=== PATIENT | male | born 1970 | race Caucasian/White ===

== ENCOUNTER 2016-08-09 07:59 | Outpatient (CLI) | payer OTHER | END 2016-08-09 08:00 | disposition home or self-care (01) | DX: E11.65 Type 2 diabetes mellitus with hyperglycemia (principal); Z79.899 Other long term (current) drug therapy ==

== ENCOUNTER 2017-04-22 10:18 | Outpatient (CLI) | payer OTHER ==
[2017-04-22 10:55] LABS: BASOPHILS # (AUTO) 0.1 10^3/uL (0.0-0.1); EOSINOPHILS # (AUTO) 0.1 10^3/uL (0.0-0.7); EOSINOPHILS % (AUTO) 1.4 %; HGB - HEMOGLOBIN 14.2 g/dL (14.0-18.0); LYMPHOCYTES % (AUTO) 31.8 %; MEAN CORPUSCULAR HEMOGLOBIN 27.9 pg (27.0-31.0); MEAN CORPUSCULAR VOLUME 79.8 fL (80.0-94.0); MEAN PLATELET VOLUME 8.2 fL (7.4-11.4); MONOCYTES # (AUTO) 0.5 10^3/uL (0.0-1.0); MONOCYTES % (AUTO) 7.4 %; NEUTROPHILS # (AUTO) 3.7 10^3/uL (1.5-6.6); NEUTROPHILS % (AUTO) 58.4 %; PLT - PLATELET COUNT 167 10^3/uL (130-450); RED BLOOD COUNT 5.09 10^6/uL (4.70-6.10); WHITE BLOOD COUNT 6.3 x10^3/uL (4.8-10.8)
[2017-04-22 11:15] LABS: ALBUMIN 4.2 g/dL (3.2-5.5); ALBUMIN/GLOBULIN RATIO 1.4 (1.0-2.2); ALKALINE PHOSPHATASE 63 IU/L (42-121); ALT ALANINE AMINOTRANSFERASE 43 IU/L (10-60); AST ASPARTATE AMINOTRANSFERASE 26 IU/L (10-42); BILIRUBIN,TOTAL 0.8 mg/dL (0.2-1.0); BUN - BLOOD UREA NITROGEN 25 mg/dL (6-20); CALCIUM 9.5 mg/dL (8.5-10.3); CARBON DIOXIDE - CO2 23 mmol/L (21-32); CHLORIDE 101 mmol/L (101-111); CHOL/HDL RATIO 4.3 (<5.0); CHOLESTEROL 183 mg/dL; CREATININE 0.6 mg/dL (0.6-1.2); GFR - MDRD 144 (>89); GLUCOSE 222 mg/dL (70-100); HDL CHOLESTEROL 43 mg/dL; LDL CHOLESTEROL,CALCULATED 115 mg/dL; LDL/HDL RATIO 2.7 (<3.6); SODIUM 138 mmol/L (135-145); TOTAL PROTEIN 7.2 g/dL (6.7-8.2); VLDL CHOLESTEROL 25 mg/dL
[2017-04-22 11:20] LABS: HB2 TOTAL 15.3 g/dL; HEMOGLOBIN A1C 1.07 g/dL; HEMOGLOBIN A1C % 8.5 % (4.6-6.2)
== END 2017-04-22 10:19 | disposition home or self-care (01) ==
LOC: LAB 10:18
PROVIDERS: ATTEND Physician Assistant Medical
DX: Z00.00 Encounter for general adult medical examination without abnormal findings (principal); E11.9 Type 2 diabetes mellitus without complications; I10 Essential (primary) hypertension; Z12.5 Encounter for screening for malignant neoplasm of prostate; Z79.899 Other long term (current) drug therapy
CPT/HCPCS: 36415; 80053; 80061; 83036; 84153; 84443; 85025

== ENCOUNTER 2017-09-08 08:00 | Outpatient (CLI) | payer OTHER ==
[2017-09-08 14:11] LABS: HB2 TOTAL 17.1 g/dL; HEMOGLOBIN A1C 1.09 g/dL
== END 2017-09-08 08:01 | disposition home or self-care (01) ==
LOC: LAB.R 08:00
PROVIDERS: ATTEND Physician Assistant Medical
DX: E11.9 Type 2 diabetes mellitus without complications (principal); Z79.899 Other long term (current) drug therapy
CPT/HCPCS: 82947; 83036

== ENCOUNTER 2017-10-19 16:00 | Outpatient (CLI) | payer OTHER | END 2017-10-19 16:01 | disposition home or self-care (01) | LOC: LAB.R 16:00 | PROVIDERS: ATTEND Physician Assistant Medical | DX: R81 Glycosuria (principal); E11.9 Type 2 diabetes mellitus without complications | CPT/HCPCS: 82043 ==

== ENCOUNTER 2018-03-17 10:43 | Outpatient (CLI) | payer OTHER ==
[2018-03-17 11:30] LABS: CHOL/HDL RATIO 4.7 (<5.0); CHOLESTEROL 189 mg/dL; GLUCOSE 232 mg/dL (70-100); HDL CHOLESTEROL 40 mg/dL; LDL CHOLESTEROL,CALCULATED 114 mg/dL; LDL/HDL RATIO 2.9 (<3.6); VLDL CHOLESTEROL 35 mg/dL
[2018-03-17 16:21] LABS: HB2 TOTAL 15.8 g/dL; HEMOGLOBIN A1C 1.08 g/dL; HEMOGLOBIN A1C % 8.4 % (4.6-6.2)
== END 2018-03-17 10:44 | disposition home or self-care (01) ==
LOC: LAB 10:43
PROVIDERS: ATTEND Physician Assistant Medical
DX: Z79.899 Other long term (current) drug therapy (principal); E66.9 Obesity, unspecified; E11.9 Type 2 diabetes mellitus without complications; I10 Essential (primary) hypertension
CPT/HCPCS: 36415; 80061; 82947; 83036; 83721

== ENCOUNTER 2018-06-17 12:07 | Emergency (ER) | payer OTHER ==
--- NOTE | 2018-06-17 13:08 | XRAY Report ---
Reason: productive cough, chills Procedure Date: 06/17/2018 Accession Number: [id number] / [id number] Procedure: XR - Chest 2 View X-Ray CPT Code: 05975 FULL RESULT: EXAM: CHEST RADIOGRAPHY EXAM DATE: 06/17/2018 12:41 PM. CLINICAL HISTORY: Productive cough, chills. COMPARISON: None. TECHNIQUE: 2 views. FINDINGS: Lungs/Pleura: No focal opacities evident. No pleural effusion. No pneumothorax. Normal volumes. Mediastinum: Heart and mediastinal contours are unremarkable. Other: None. IMPRESSION: Normal 2-view chest radiography. RADIA
--- NOTE | 2018-06-17 15:25 | ED Physician Documentation ---
PD HPI URI - Stated complaint Stated Complaint: SORE THROAT/CONGESTED/SOA - Chief complaint Chief Complaint: Resp - History obtained from History obtained from: Patient - History of Present Illness Timing - onset: How many weeks ago (1) Timing duration: Weeks (1) Timing details: Abrupt onset, Still present Associated symptoms: Nasal congestion (for a week), Swollen nodes, Productive cough (for 2-3 days). No: Fever Contributing factors: No: Sick contact, Travel, COPD / asthma Similar symptoms before: Has not had sx before Recently seen: Not recently seen Review of Systems Constitutional: reports: Fever Nose: reports: Congestion Throat: denies: Sore throat Respiratory: reports: Dyspnea, Cough GI: denies: Nausea, Vomiting, Diarrhea Skin: denies: Rash, Lesions Neurologic: denies: Altered mental status, Headache PD PAST MEDICAL HISTORY - Past Medical History Cardiovascular: Hypertension Endocrine/Autoimmune: Type 2 diabetes GI: GERD Musculoskeletal: Other - Present Medications Home Medications: Ambulatory Orders Medication Instructions Recorded Confirmed HYDROcod/ACETAM 5/325 [Vicodin 1 tab PO Q6HR PRN 02/05/14 04/30/14 5/325] Ibuprofen 100 mg PO Q6HR PRN 02/05/14 04/30/14 Lisinopril/Hydrochlorothiazide 1 each PO BID 02/05/14 04/30/14 [Lisinopril-Hctz 20-12.5 mg Tab] Metformin HCl [Metformin ER 500 - 1,000 mg PO BID 02/05/14 04/30/14 Osmotic] Aspirin Chewable [[place] 81 mg PO DAILY 06/17/18 06/17/18 Aspirin] Benzonatate [Tessalon Perle] 100 - 200 mg PO TID PRN #30 capsule 06/17/18 Dexamethasone [Decadron] 4 mg PO DAILY #5 tablet 06/17/18 Doxycycline Hyclate 100 mg PO BID #20 capsule 06/17/18 Insulin Lispro [Humalog] 15 unit SUBQ BID 06/17/18 06/17/18 Meloxicam 7.5 mg PO DAILY PRN 06/17/18 06/17/18 guaiFENesin/CODEINE [Robitussin AC] 10 ml PO Q6H PRN #240 ml 06/17/18 - Allergies Allergies/Adverse Reactions: Allergies Allergy/AdvReac Type Severity Reaction Status Date / Time No Known Drug Allergies Allergy Verified 06/17/18 12:23 - Social History Smoking Status: Former smoker PD ED PE NORMAL - Vitals Vital signs reviewed: Yes - General General: Alert and oriented X 3, No acute distress, Well developed/nourished - HEENT HEENT: Moist mucous membranes, Pharynx benign - Neck Neck: Supple, no meningeal sign, No adenopathy - Cardiac Cardiac: RRR, No murmur - Respiratory Respiratory: Clear bilaterally - Abdomen Abdomen: Soft, Non tender - Derm Derm: Normal color, Warm and dry - Neuro Neuro: Alert and oriented X 3, No motor deficit, Normal speech Results - Vitals Vitals: Oxygen O2 Source Room air - Rads (name of study) chest xray Radiology: Prelim report reviewed (normal), EMP read contemporaneously, See rad report PD MEDICAL DECISION MAKING - ED course Complexity details: reviewed results, considered differential (URI with now productive cough.), d/w patient Departure - Departure Disposition: Home, Self Care Clinical Impression: Bronchitis Upper respiratory infection Qualifiers: URI type: unspecified URI Qualified Code(s): J06.9 - Acute upper respiratory infection, unspecified Condition: Stable Record reviewed to determine appropriate education?: Yes Instructions: ED Upper Resp Infec Abx Tx Follow-Up: Ashok Negron MD [Primary Care Provider] - Prescriptions: Benzonatate [Tessalon Perle] 100 - 200 mg PO TID PRN #30 capsule PRN Reason: Cough Dexamethasone [Decadron] 4 mg PO DAILY #5 tablet Doxycycline Hyclate 100 mg PO BID #20 capsule guaiFENesin/CODEINE [Robitussin AC] 10 ml PO Q6H PRN #240 ml PRN Reason: Cough Comments: No pneumonia on x-ray. Sounds like bronchitis which may be viral or sometimes bacterial. Use Decadron anti-inflammatory for the bronchial inflammation will have less coughing. Tessalon if needed for cough as well. You can add cough medicine with codeine periodically if needed for worse cough. Doxycycline antibiotic twice daily for a week for potential bacterial component. Recheck if not improving over the next several days to week Discharge Date/Time: 06/17/18 16:17
[2018-06-17 15:45] VITALS: BP 112/89
[2018-06-17] MEDS ORDERED: DEXAMETHASONE 10 MG/ML VIAL PO STA (15:46)
[2018-06-17] MEDS ORDERED: BENZONATATE 100 MG CAPSULE PO STA (15:46)
[2018-06-17] MEDS ORDERED: CHERRY SYRUP 10 ML UDC PO ONE (15:54)
== END 2018-06-17 16:17 | disposition home or self-care (01) ==
LOC: ED 12:07
DX: J06.9 Acute upper respiratory infection, unspecified (principal); J40 Bronchitis, not specified as acute or chronic; I10 Essential (primary) hypertension; E11.9 Type 2 diabetes mellitus without complications; Z87.891 Personal history of nicotine dependence
CPT/HCPCS: 71046; 99283; A9270

== ENCOUNTER 2018-09-19 10:42 | Outpatient (CLI) | payer OTHER ==
[2018-09-19 11:33] LABS: HB2 TOTAL 14.8 g/dL; HEMOGLOBIN A1C 1.08 g/dL; HEMOGLOBIN A1C % 8.8 % (4.6-6.2)
[2018-09-19 11:35] LABS: ALBUMIN 4.2 g/dL (3.2-5.5); ALBUMIN/GLOBULIN RATIO 1.5 (1.0-2.2); ALKALINE PHOSPHATASE 54 IU/L (42-121); ALT ALANINE AMINOTRANSFERASE 46 IU/L (10-60); AST ASPARTATE AMINOTRANSFERASE 30 IU/L (10-42); BILIRUBIN,TOTAL 0.7 mg/dL (0.2-1.0); BUN - BLOOD UREA NITROGEN 33 mg/dL (6-20); CALCIUM 9.3 mg/dL (8.5-10.3); CARBON DIOXIDE - CO2 26 mmol/L (21-32); CHLORIDE 104 mmol/L (101-111); CHOL/HDL RATIO 3.8 (<5.0); CHOLESTEROL 166 mg/dL; CREATININE 0.7 mg/dL (0.6-1.2); GFR - MDRD 119 (>89); GLUCOSE 165 mg/dL (70-100); HDL CHOLESTEROL 44 mg/dL; LDL CHOLESTEROL,CALCULATED 108 mg/dL; LDL/HDL RATIO 2.5 (<3.6); SODIUM 138 mmol/L (135-145); VLDL CHOLESTEROL 14 mg/dL
== END 2018-09-19 10:43 | disposition home or self-care (01) ==
LOC: LAB 10:42
PROVIDERS: ATTEND Internal Medicine
DX: E11.65 Type 2 diabetes mellitus with hyperglycemia (principal)
CPT/HCPCS: 36415; 80053; 80061; 83036; 83721

== ENCOUNTER 2018-12-15 10:00 | Outpatient (CLI) | payer OTHER ==
[2018-12-15 10:37] LABS: HB2 TOTAL 14.9 g/dL; HEMOGLOBIN A1C 0.89 g/dL; HEMOGLOBIN A1C % 7.6 % (4.6-6.2)
[2018-12-15 10:38] LABS: ALBUMIN 3.8 g/dL (3.2-5.5); ALBUMIN/GLOBULIN RATIO 1.2 (1.0-2.2); ALKALINE PHOSPHATASE 57 IU/L (42-121); ALT ALANINE AMINOTRANSFERASE 34 IU/L (10-60); AST ASPARTATE AMINOTRANSFERASE 22 IU/L (10-42); BILIRUBIN,TOTAL 0.7 mg/dL (0.2-1.0); BUN - BLOOD UREA NITROGEN 29 mg/dL (6-20); CALCIUM 9.1 mg/dL (8.5-10.3); CARBON DIOXIDE - CO2 29 mmol/L (21-32); CHLORIDE 104 mmol/L (101-111); CHOL/HDL RATIO 4.1 (<5.0); CHOLESTEROL 167 mg/dL; CREATININE 0.6 mg/dL (0.6-1.2); GFR - MDRD 143 (>89); GLUCOSE 274 mg/dL (70-100); HDL CHOLESTEROL 41 mg/dL; LDL CHOLESTEROL,CALCULATED 107 mg/dL; LDL/HDL RATIO 2.6 (<3.6); SODIUM 139 mmol/L (135-145); TOTAL PROTEIN 6.9 g/dL (6.7-8.2); VLDL CHOLESTEROL 19 mg/dL
== END 2018-12-15 10:01 | disposition home or self-care (01) ==
LOC: LAB 10:00
PROVIDERS: ATTEND Internal Medicine
DX: E11.8 Type 2 diabetes mellitus with unspecified complications (principal); Z79.4 Long term (current) use of insulin
CPT/HCPCS: 36415; 80053; 80061; 83036; 83721

== ENCOUNTER 2019-03-16 11:51 | Outpatient (CLI) | payer OTHER ==
[2019-03-16 12:26] LABS: CALCIUM 9.4 mg/dL (8.5-10.3); CREATININE 0.8 mg/dL (0.6-1.2)
[2019-03-16 12:39] LABS: HB2 TOTAL 16.5 g/dL; HEMOGLOBIN A1C 1.18 g/dL; HEMOGLOBIN A1C % 8.7 % (4.6-6.2)
== END 2019-03-16 11:52 | disposition home or self-care (01) ==
LOC: LAB 11:51
PROVIDERS: ATTEND Nurse Practitioner
DX: E11.65 Type 2 diabetes mellitus with hyperglycemia (principal); Z79.4 Long term (current) use of insulin
CPT/HCPCS: 36415; 80048; 83036

== ENCOUNTER 2019-06-29 11:50 | Outpatient (CLI) | payer OTHER ==
[2019-06-29 12:08] LABS: BASOPHILS % (AUTO) 0.5 %; EOSINOPHILS # (AUTO) 0.1 10^3/uL (0.0-0.7); EOSINOPHILS % (AUTO) 1.4 %; HGB - HEMOGLOBIN 15.2 g/dL (14.0-18.0); LYMPHOCYTES % (AUTO) 34.1 %; MEAN CORPUSCULAR HEMOGLOBIN 27.9 pg (27.0-31.0); MEAN CORPUSCULAR HGB CONC 33.8 g/dL (32.0-36.0); MEAN CORPUSCULAR VOLUME 82.6 fL (80.0-94.0); MONOCYTES # (AUTO) 0.5 10^3/uL (0.0-1.0); NEUTROPHILS # (AUTO) 3.2 10^3/uL (1.5-6.6); NEUTROPHILS % (AUTO) 54.7 %; PLT - PLATELET COUNT 184 10^3/uL (130-450); RED BLOOD COUNT 5.45 10^6/uL (4.70-6.10); WHITE BLOOD COUNT 5.9 x10^3/uL (4.8-10.8)
[2019-06-29 12:25] LABS: ALBUMIN 4.3 g/dL (3.2-5.5); ALBUMIN/GLOBULIN RATIO 1.4 (1.0-2.2); ALKALINE PHOSPHATASE 67 IU/L (42-121); ALT ALANINE AMINOTRANSFERASE 59 IU/L (10-60); AST ASPARTATE AMINOTRANSFERASE 38 IU/L (10-42); BUN - BLOOD UREA NITROGEN 25 mg/dL (6-20); CALCIUM 9.3 mg/dL (8.5-10.3); CARBON DIOXIDE - CO2 26 mmol/L (21-32); CHLORIDE 102 mmol/L (101-111); CHOL/HDL RATIO 4.4 (<5.0); CHOLESTEROL 188 mg/dL; CREATININE 0.8 mg/dL (0.6-1.2); GFR - MDRD 102 (>89); GLUCOSE 241 mg/dL (70-100); HDL CHOLESTEROL 43 mg/dL; LDL CHOLESTEROL,CALCULATED 124 mg/dL; LDL/HDL RATIO 2.9 (<3.6); SODIUM 135 mmol/L (135-145); TOTAL PROTEIN 7.3 g/dL (6.7-8.2); VLDL CHOLESTEROL 21 mg/dL
[2019-06-29 19:13] LABS: HB2 TOTAL 14.1 g/dL; HEMOGLOBIN A1C 1.11 g/dL; HEMOGLOBIN A1C % 9.4 % (4.6-6.2)
== END 2019-06-29 11:51 | disposition home or self-care (01) ==
LOC: LAB 11:50
PROVIDERS: ATTEND Nurse Practitioner
DX: E11.8 Type 2 diabetes mellitus with unspecified complications (principal); Z79.4 Long term (current) use of insulin
CPT/HCPCS: 36415; 80053; 80061; 83036; 83721; 84443; 85025

== ENCOUNTER 2019-10-19 09:28 | Outpatient (CLI) | payer OTHER ==
[2019-10-19 10:09] LABS: CALCIUM 9.3 mg/dL (8.5-10.3); CREATININE 0.8 mg/dL (0.6-1.2)
[2019-10-19 10:35] LABS: HB2 TOTAL 15.6 g/dL; HEMOGLOBIN A1C 0.89 g/dL; HEMOGLOBIN A1C % 7.4 % (4.6-6.2)
== END 2019-10-19 09:29 | disposition home or self-care (01) ==
LOC: LAB 09:28
PROVIDERS: ATTEND Nurse Practitioner
DX: I10 Essential (primary) hypertension (principal); E11.65 Type 2 diabetes mellitus with hyperglycemia; E66.9 Obesity, unspecified; Z79.4 Long term (current) use of insulin
CPT/HCPCS: 36415; 80048; 83036

== ENCOUNTER 2020-01-17 12:51 | Outpatient (CLI) | payer OTHER ==
[2020-01-17 13:11] LABS: BASOPHILS % (AUTO) 0.5 %; EOSINOPHILS % (AUTO) 0.5 %; HGB - HEMOGLOBIN 14.5 g/dL (14.0-18.0); LYMPHOCYTES # (AUTO) 2.3 10^3/uL (1.5-3.5); LYMPHOCYTES % (AUTO) 31.1 %; MEAN CORPUSCULAR HEMOGLOBIN 27.3 pg (27.0-31.0); MEAN CORPUSCULAR HGB CONC 33.2 g/dL (32.0-36.0); MEAN CORPUSCULAR VOLUME 82.1 fL (80.0-94.0); MEAN PLATELET VOLUME 9.8 fL (7.4-11.4); MONOCYTES # (AUTO) 0.5 10^3/uL (0.0-1.0); NEUTROPHILS # (AUTO) 4.4 10^3/uL (1.5-6.6); NEUTROPHILS % (AUTO) 60.6 %; PLT - PLATELET COUNT 182 10^3/uL (130-450); RED BLOOD COUNT 5.32 10^6/uL (4.70-6.10); WHITE BLOOD COUNT 7.3 x10^3/uL (4.8-10.8)
[2020-01-17 13:28] LABS: ALBUMIN 4.3 g/dL (3.2-5.5); ALBUMIN/GLOBULIN RATIO 1.4 (1.0-2.2); ALKALINE PHOSPHATASE 61 IU/L (42-121); ALT ALANINE AMINOTRANSFERASE 35 IU/L (10-60); AST ASPARTATE AMINOTRANSFERASE 24 IU/L (10-42); BILIRUBIN,TOTAL 0.8 mg/dL (0.2-1.0); BUN - BLOOD UREA NITROGEN 35 mg/dL (6-20); CALCIUM 9.7 mg/dL (8.5-10.3); CARBON DIOXIDE - CO2 25 mmol/L (21-32); CHLORIDE 103 mmol/L (101-111); CHOL/HDL RATIO 4.8 (<5.0); CHOLESTEROL 197 mg/dL; CREATININE 0.8 mg/dL (0.6-1.2); GLUCOSE 230 mg/dL (70-100); HDL CHOLESTEROL 41 mg/dL; LDL CHOLESTEROL,CALCULATED 119 mg/dL; LDL/HDL RATIO 2.9 (<3.6); SODIUM 138 mmol/L (135-145); TOTAL PROTEIN 7.3 g/dL (6.7-8.2); VLDL CHOLESTEROL 37 mg/dL
[2020-01-17 13:31] LABS: CREATINE KINASE MB 2.1 ng/mL (0.6-6.3)
[2020-01-17 20:08] LABS: HEMOGLOBIN A1c% 7.4 % (4.27-6.07)
== END 2020-01-17 12:52 | disposition home or self-care (01) ==
LOC: LAB 12:51
PROVIDERS: ATTEND Family Medicine
DX: R00.2 Palpitations (principal); I10 Essential (primary) hypertension; E11.9 Type 2 diabetes mellitus without complications; Z79.4 Long term (current) use of insulin; E66.9 Obesity, unspecified
CPT/HCPCS: 36415; 80053; 80061; 82553; 83036; 83721; 84443; 84484; 85025; 85379

== ENCOUNTER 2020-01-17 13:15 | Outpatient (CLI) | payer OTHER ==
--- NOTE | 2020-01-17 14:29 | XRAY Report ---
PROCEDURE: Chest 2 View X-Ray INDICATIONS: PALPITATIONS TECHNIQUE: 2 view(s) of the chest. COMPARISON: None. FINDINGS: Surgical changes and devices: None. Lungs and pleura: No pleural effusions or pneumothorax. Lungs are clear. Mediastinum: Mediastinal contours are normal. Heart size is normal. Bones and chest wall: No suspicious bony abnormalities. Soft tissues appear unremarkable. IMPRESSION: Normal chest radiographs. Reviewed by: Ppai Rice MD on 01/17/2020 2:27 PM PDT Approved by: Papi Rice MD on 01/17/2020 2:27 PM PDT Station ID: [id number]
== END 2020-01-17 13:16 | disposition home or self-care (01) ==
LOC: DI 13:15
PROVIDERS: ATTEND Family Medicine
DX: R00.2 Palpitations (principal); I10 Essential (primary) hypertension; E11.9 Type 2 diabetes mellitus without complications; Z79.4 Long term (current) use of insulin; E66.9 Obesity, unspecified
CPT/HCPCS: 36415; 71046; 80053; 80061; 82553; 83036; 83721; 84443; 84484; 85025; 85379

== ENCOUNTER 2020-04-30 07:00 | Outpatient (CLI) | payer OTHER ==
[2020-04-30 16:29] LABS: CALCIUM 10.3 mg/dL (8.5-10.3)
[2020-04-30 20:27] LABS: HEMOGLOBIN A1c% 8.2 % (4.27-6.07)
== END 2020-04-30 23:59 | disposition home or self-care (01) ==
LOC: LAB 07:00
PROVIDERS: ATTEND Nurse Practitioner
DX: E11.65 Type 2 diabetes mellitus with hyperglycemia (principal); Z79.4 Long term (current) use of insulin; I10 Essential (primary) hypertension
CPT/HCPCS: 36415; 80048; 83036

== ENCOUNTER 2020-07-16 16:49 | Outpatient (CLI) | payer OTHER ==
[2020-07-16 17:08] LABS: CALCIUM 9.9 mg/dL (8.5-10.3); CREATININE 0.7 mg/dL (0.6-1.2); POTASSIUM 3.9 mmol/L (3.5-5.0)
[2020-07-16 20:11] LABS: ESTIMATED AVERAGE GLUCOSE 200 mg/dL (70-100); HEMOGLOBIN A1c% 8.6 % (4.27-6.07)
== END 2020-07-16 16:50 | disposition home or self-care (01) ==
LOC: LAB 16:49
PROVIDERS: ATTEND Nurse Practitioner
DX: E11.8 Type 2 diabetes mellitus with unspecified complications (principal); Z79.4 Long term (current) use of insulin
CPT/HCPCS: 36415; 80048; 83036

== ENCOUNTER 2021-03-30 08:43 | Outpatient (CLI) | payer OTHER ==
[2021-03-30 09:04] LABS: CALCIUM 9.6 mg/dL (8.5-10.3); CREATININE 0.7 mg/dL (0.6-1.2); POTASSIUM 4.1 mmol/L (3.5-5.0)
[2021-03-30 12:23] LABS: ESTIMATED AVERAGE GLUCOSE 275 mg/dL (70-100); HEMOGLOBIN A1c% 11.2 % (4.27-6.07)
== END 2021-03-30 08:44 | disposition home or self-care (01) ==
LOC: LAB 08:43
PROVIDERS: ATTEND Family Medicine
DX: E11.8 Type 2 diabetes mellitus with unspecified complications (principal); Z79.4 Long term (current) use of insulin
CPT/HCPCS: 36415; 80048; 83036

== ENCOUNTER 2021-06-05 10:22 | Outpatient (CLI) | payer OTHER ==
[2021-06-05 10:52] LABS: BASOPHILS # (AUTO) 0.1 10^3/uL (0.0-0.1); BASOPHILS % (AUTO) 0.8 %; EOSINOPHILS # (AUTO) 0.1 10^3/uL (0.0-0.7); EOSINOPHILS % (AUTO) 1.5 %; HCT - HEMATOCRIT 44.8 % (42.0-52.0); HGB - HEMOGLOBIN 15.2 g/dL (14.0-18.0); LYMPHOCYTES % (AUTO) 29.9 %; MEAN CORPUSCULAR HEMOGLOBIN 27.9 pg (27.0-31.0); MEAN CORPUSCULAR HGB CONC 33.9 g/dL (32.0-36.0); MEAN CORPUSCULAR VOLUME 82.2 fL (80.0-94.0); MEAN PLATELET VOLUME 10.1 fL (7.4-11.4); MONOCYTES # (AUTO) 0.6 10^3/uL (0.0-1.0); MONOCYTES % (AUTO) 8.4 %; NEUTROPHILS # (AUTO) 3.9 10^3/uL (1.5-6.6); NEUTROPHILS % (AUTO) 59.2 %; PLT - PLATELET COUNT 191 10^3/uL (130-450); RED BLOOD COUNT 5.45 10^6/uL (4.70-6.10); RED CELL DISTRIBUTION WIDTH 13.8 % (12.0-15.0); WHITE BLOOD COUNT 6.5 x10^3/uL (4.8-10.8)
[2021-06-05 10:55] LABS: MICROALBUM/CREATININE RATIO,UR 15.6 ug/mg (<30.0); MICROALBUMIN,URINE 1.7 mg/dL (0-300.0)
[2021-06-05 11:09] LABS: ALBUMIN 4.5 g/dL (3.2-5.5); ALBUMIN/GLOBULIN RATIO 1.6 (1.0-2.2); ALKALINE PHOSPHATASE 60 IU/L (42-121); ALT ALANINE AMINOTRANSFERASE 46 IU/L (10-60); AST ASPARTATE AMINOTRANSFERASE 27 IU/L (10-42); BILIRUBIN,TOTAL 1.4 mg/dL (0.2-1.0); BUN - BLOOD UREA NITROGEN 29 mg/dL (6-20); CALCIUM 9.6 mg/dL (8.5-10.3); CARBON DIOXIDE - CO2 26 mmol/L (21-32); CHLORIDE 99 mmol/L (101-111); CHOL/HDL RATIO 4.3 (<5.0); CHOLESTEROL 209 mg/dL; CREATININE 0.8 mg/dL (0.6-1.2); GFR - MDRD 102 (>89); GLUCOSE 259 mg/dL (70-100); HDL CHOLESTEROL 49 mg/dL; LDL CHOLESTEROL,CALCULATED 135 mg/dL; LDL/HDL RATIO 2.8 (<3.6); POTASSIUM 4.3 mmol/L (3.5-5.0); SODIUM 134 mmol/L (135-145); TOTAL PROTEIN 7.4 g/dL (6.7-8.2); TRIGLYCERIDES 125 mg/dL; VLDL CHOLESTEROL 25 mg/dL
[2021-06-05 11:21] LABS: THYROID STIMULATING HORMONE 1.38 uIU/mL (0.34-5.60)
[2021-06-05 14:31] LABS: ESTIMATED AVERAGE GLUCOSE 252 mg/dL (70-100); HEMOGLOBIN A1c% 10.4 % (4.27-6.07)
== END 2021-06-05 10:23 | disposition home or self-care (01) ==
LOC: LAB 10:22
PROVIDERS: ATTEND Family Medicine
DX: I10 Essential (primary) hypertension (principal); E11.8 Type 2 diabetes mellitus with unspecified complications; E66.9 Obesity, unspecified; Z79.4 Long term (current) use of insulin
CPT/HCPCS: 36415; 80053; 80061; 82043; 82570; 83036; 83721; 84443; 85025

== ENCOUNTER 2021-12-14 17:00 | Outpatient (CLI) | payer OTHER ==
[2021-12-14 17:44] LABS: CREATININE,URINE 73.2 mg/dL; MICROALBUM/CREATININE RATIO,UR 9.6 ug/mg (<30.0); MICROALBUMIN,URINE 0.7 mg/dL (0-300.0)
[2021-12-14 17:46] LABS: BASOPHILS % (AUTO) 0.4 %; EOSINOPHILS # (AUTO) 0.1 10^3/uL (0.0-0.7); EOSINOPHILS % (AUTO) 0.9 %; HCT - HEMATOCRIT 42.6 % (42.0-52.0); HGB - HEMOGLOBIN 14.5 g/dL (14.0-18.0); LYMPHOCYTES # (AUTO) 2.9 10^3/uL (1.5-3.5); LYMPHOCYTES % (AUTO) 38.5 %; MEAN CORPUSCULAR HEMOGLOBIN 27.5 pg (27.0-31.0); MEAN CORPUSCULAR VOLUME 80.8 fL (80.0-94.0); MEAN PLATELET VOLUME 10.3 fL (7.4-11.4); MONOCYTES # (AUTO) 0.6 10^3/uL (0.0-1.0); MONOCYTES % (AUTO) 8.4 %; NEUTROPHILS # (AUTO) 3.8 10^3/uL (1.5-6.6); NEUTROPHILS % (AUTO) 51.5 %; PLT - PLATELET COUNT 186 10^3/uL (130-450); RED BLOOD COUNT 5.27 10^6/uL (4.70-6.10); RED CELL DISTRIBUTION WIDTH 13.7 % (12.0-15.0); WHITE BLOOD COUNT 7.4 x10^3/uL (4.8-10.8)
[2021-12-14 17:56] LABS: ALBUMIN 4.6 g/dL (3.2-5.5); ALBUMIN/GLOBULIN RATIO 1.5 (1.0-2.2); BILIRUBIN,TOTAL 0.5 mg/dL (0.2-1.0); CALCIUM 10.2 mg/dL (8.5-10.3); CREATININE 0.8 mg/dL (0.6-1.2); POTASSIUM 3.6 mmol/L (3.5-5.0); TOTAL PROTEIN 7.7 g/dL (6.7-8.2)
[2021-12-14 21:09] LABS: ESTIMATED AVERAGE GLUCOSE 252 mg/dL (70-100); HEMOGLOBIN A1c% 10.4 % (4.27-6.07)
== END 2021-12-14 17:01 | disposition home or self-care (01) ==
LOC: LAB 17:00
PROVIDERS: ATTEND Family Medicine
DX: E11.65 Type 2 diabetes mellitus with hyperglycemia (principal); I10 Essential (primary) hypertension; E66.9 Obesity, unspecified; Z79.4 Long term (current) use of insulin
CPT/HCPCS: 36415; 80053; 82043; 82570; 83036; 85025

== ENCOUNTER 2022-04-01 10:04 | Outpatient (CLI) | payer OTHER ==
[2022-04-01 10:24] LABS: CALCIUM 9.5 mg/dL (8.5-10.3); CREATININE 0.8 mg/dL (0.6-1.2); POTASSIUM 4.4 mmol/L (3.5-5.0)
[2022-04-01 11:50] LABS: ESTIMATED AVERAGE GLUCOSE 255 mg/dL (70-100); HEMOGLOBIN A1c% 10.5 % (4.27-6.07)
== END 2022-04-01 10:05 | disposition home or self-care (01) ==
LOC: LAB 10:04
PROVIDERS: ATTEND Family Medicine
DX: E11.65 Type 2 diabetes mellitus with hyperglycemia (principal)
CPT/HCPCS: 36415; 80048; 83036

== ENCOUNTER 2022-07-23 11:21 | Outpatient (CLI) | payer OTHER ==
[2022-07-23 11:39] LABS: BASOPHILS # (AUTO) 0.1 10^3/uL (0.0-0.1); BASOPHILS % (AUTO) 0.8 %; EOSINOPHILS # (AUTO) 0.1 10^3/uL (0.0-0.7); EOSINOPHILS % (AUTO) 2.2 %; HCT - HEMATOCRIT 44.2 % (42.0-52.0); HGB - HEMOGLOBIN 14.8 g/dL (14.0-18.0); LYMPHOCYTES # (AUTO) 2.2 10^3/uL (1.5-3.5); LYMPHOCYTES % (AUTO) 37.1 %; MEAN CORPUSCULAR HEMOGLOBIN 27.6 pg (27.0-31.0); MEAN CORPUSCULAR HGB CONC 33.5 g/dL (32.0-36.0); MEAN CORPUSCULAR VOLUME 82.5 fL (80.0-94.0); MEAN PLATELET VOLUME 10.2 fL (7.4-11.4); MONOCYTES # (AUTO) 0.5 10^3/uL (0.0-1.0); MONOCYTES % (AUTO) 7.7 %; NEUTROPHILS # (AUTO) 3.1 10^3/uL (1.5-6.6); PLT - PLATELET COUNT 174 10^3/uL (130-450); RED BLOOD COUNT 5.36 10^6/uL (4.70-6.10); RED CELL DISTRIBUTION WIDTH 13.4 % (12.0-15.0)
[2022-07-23 11:49] LABS: CREATININE,URINE 122.1 mg/dL; MICROALBUM/CREATININE RATIO,UR 8.2 ug/mg (<30.0)
[2022-07-23 12:03] LABS: ALBUMIN 4.2 g/dL (3.2-5.5); ALBUMIN/GLOBULIN RATIO 1.5 (1.0-2.2); ALKALINE PHOSPHATASE 56 IU/L (42-121); ALT ALANINE AMINOTRANSFERASE 36 IU/L (10-60); AST ASPARTATE AMINOTRANSFERASE 26 IU/L (10-42); BILIRUBIN,TOTAL 0.9 mg/dL (0.2-1.0); BUN - BLOOD UREA NITROGEN 31 mg/dL (6-20); CALCIUM 9.4 mg/dL (8.5-10.3); CARBON DIOXIDE - CO2 28 mmol/L (21-32); CHLORIDE 105 mmol/L (101-111); CHOL/HDL RATIO 4.4 (<5.0); CHOLESTEROL 213 mg/dL; CREATININE 0.8 mg/dL (0.6-1.2); GFR - MDRD 101 (>89); GLUCOSE 234 mg/dL (70-100); HDL CHOLESTEROL 48 mg/dL; LDL CHOLESTEROL,CALCULATED 143 mg/dL; POTASSIUM 4.4 mmol/L (3.5-5.0); SODIUM 139 mmol/L (135-145); TRIGLYCERIDES 111 mg/dL; VLDL CHOLESTEROL 22 mg/dL
[2022-07-23 12:15] LABS: THYROID STIMULATING HORMONE 1.18 uIU/mL (0.34-5.60)
[2022-07-23 14:22] LABS: ESTIMATED AVERAGE GLUCOSE 252 mg/dL (70-100); HEMOGLOBIN A1c% 10.4 % (4.27-6.07)
== END 2022-07-23 11:22 | disposition home or self-care (01) ==
LOC: LAB 11:21
PROVIDERS: ATTEND Family Medicine
DX: I10 Essential (primary) hypertension (principal); F40.231 Fear of injections and transfusions; M25.552 Pain in left hip; G58.8 Other specified mononeuropathies; J44.9 Chronic obstructive pulmonary disease, unspecified; E66.9 Obesity, unspecified
CPT/HCPCS: 36415; 80053; 80061; 82043; 82570; 83036; 83721; 84443; 85025

== ENCOUNTER 2023-02-02 08:45 | Day surgery (SDC) | payer OTHER ==
[2023-02-02] MEDS ORDERED: LACTATED RINGERS 1,000 ML IV ONE (08:50)
--- NOTE | 2023-02-02 09:37 | ANESTHESIA ---
Pre-Anesthesia VS, & Labs - Diagnosis screening - Procedure colonoscopy Vital Signs: Temp Pulse Resp BP Pulse Ox O2 Flow Rate 36.4 C L 93 16 141/96 H 97 02/02/23 09:02 02/02/23 09:02 02/02/23 09:02 02/02/23 09:02 02/02/23 09:02 Height: 5 ft 6 in Weight (kg): 85.9 kg Body Mass Index: 30.5 BMI Classification: Obese - NPO >8 hours - Lab Results Current Lab Results: Laboratory Tests 02/02/23 09:15: POC Whole Bld Glucose 256 H Lab results reviewed: Yes Home Medications and Allergies Home Medications: Ambulatory Orders Naproxen Sodium [Aleve] 220 mg PO HS 02/01/23 Acetaminophen [Tylenol] 1 tab PO PRN PRN 02/02/23 Glimepiride [Amaryl] 6 mg PO BID 02/02/23 HYDROcod/ACETAM 5/325 [Vicodin 5/325] 1 tab PO Q6HR PRN 02/05/14 Ibuprofen 200 mg PO Q6HR PRN 02/05/14 Lisinopril/Hydrochlorothiazide [Lisinopril-Hctz 20-12.5 mg Tab] 2 tab PO DAILY 02/05/14 Metformin HCl [Metformin ER Osmotic] 500 mg PO TID 02/05/14 Aspirin Chewable [[place] Aspirin] 81 mg PO DAILY 06/17/18 Insulin Lispro [Humalog] 15 unit SUBQ BID 06/17/18 Naproxen Sodium [Aleve] 220 mg PO HS 02/01/23 Acetaminophen [Tylenol] 1 tab PO PRN PRN 02/02/23 Glimepiride [Amaryl] 6 mg PO BID 02/02/23 Allergies/Adverse Reactions: Allergies Allergy/AdvReac Type Severity Reaction Status Date / Time No Known Drug Allergies Allergy Verified 02/01/23 13:25 Anes History & Medical History - Anesthetic History Anesthesia Complications: reports: No previous complications Family history of Anesthesia Complications: Denies Family history of Malignant Hyperthermia: Denies - Medical History Cardiovascular: reports: Hypertension Pulmonary: reports: Other Gastrointestinal: reports: GERD Musculoskeletal: reports: Chronic back pain, Other Endocrine/Autoimmune: reports: Type 2 diabetes Skin: reports: None Smoking Status: Former smoker Psychosocial: reports: No issues indicated History of Cancer?: No - Surgical History General: reports: Colonoscopy Orthopedic: reports: Shoulder arthroplasty Exam General: Alert, Oriented x3, Cooperative Dental: Other (no teeth) Mouth Opening: Greater than 4 Fingerbreadths Neck Mobility: Normal Mallampati classification: II Thyromental Distance: 4-6 cm Respiratory: Lungs clear, Normal breath sounds, No respiratory distress Cardiovascular: Regular rate Neurological: Normal speech Cognitive Status: Within normal limits Plan Anesthesia Type: Total IV Consent for Procedure(s) Verified and Reviewed: Yes Code Status: Attempt Resuscitation ASA classification: 2-Mild systemic disease Is this case an emergency?: No
[2023-02-02] MEDS ORDERED: PROPOFOL 500 MG/50 ML 500 MG/50 ML VIAL ONE (09:48)
[2023-02-02] MEDS ORDERED: SIMETHICONE 40 MG/0.6 ML 15 ML BOTTLE PO ONE (10:14)
[2023-02-02] MEDS ORDERED: LACTATED RINGERS 300 ML IV ONE (10:30)
[2023-02-02 11:18] VITALS: BP 122/74; O2SAT 98
--- NOTE | 2023-02-02 12:17 | ANESTHESIA POST OP EVALUATION ---
Anesthesia Post Eval - Post Anesthesia Eval Vitals: Last Vital Signs Temp 36.6 C 02/02/23 11:00 Pulse 90 02/02/23 11:00 Resp 12 02/02/23 11:00 BP 122/74 02/02/23 11:00 Pulse Ox 98 02/02/23 11:00 O2 Flow Rate CV Function Including HR & BP: Stable Pain Control: Satisfactory Nausea & Vomiting: Negative Mental Status: Baseline Respiratory Status: Airway Patent Hydration Status: Satisfactory Anesthesia Complications: None
== END 2023-02-02 08:46 | disposition home or self-care (01) ==
LOC: SDS 08:45
PROVIDERS: ATTEND Surgery
PROC: 0DBC8ZX Excision of Ileocecal Valve, Via Natural or Artificial Opening Endoscopic, Diagnostic (ICD-10-PCS; principal; 2023-02-02 10:15)
DX: Z12.11 Encounter for screening for malignant neoplasm of colon (principal); K57.30 Diverticulosis of large intestine without perforation or abscess without bleeding; J44.9 Chronic obstructive pulmonary disease, unspecified; E66.9 Obesity, unspecified; Z68.30 Body mass index [BMI] 30.0-30.9, adult; E11.9 Type 2 diabetes mellitus without complications; Z79.4 Long term (current) use of insulin; Z79.84 Long term (current) use of oral hypoglycemic drugs; Z87.891 Personal history of nicotine dependence
CPT/HCPCS: 45380; A9270; J7120

== ENCOUNTER 2023-02-25 09:46 | Outpatient (CLI) | payer OTHER ==
[2023-02-25 10:25] LABS: CALCIUM 9.6 mg/dL (8.5-10.3); CREATININE 0.7 mg/dL (0.6-1.3)
[2023-02-25 10:26] LABS: CREATININE,URINE 104.9 mg/dL; MICROALBUM/CREATININE RATIO,UR 21.9 ug/mg (<30.0); MICROALBUMIN,URINE 2.3 mg/dL
[2023-02-25 10:55] LABS: ESTIMATED AVERAGE GLUCOSE 243 mg/dL (70-100); HEMOGLOBIN A1c% 10.1 % (4.27-6.07)
== END 2023-02-25 09:47 | disposition home or self-care (01) ==
LOC: LAB 09:46
PROVIDERS: ATTEND Family Medicine
DX: E11.8 Type 2 diabetes mellitus with unspecified complications (principal); Z79.4 Long term (current) use of insulin
CPT/HCPCS: 36415; 80048; 82043; 82570; 83036

== ENCOUNTER 2023-07-01 09:22 | Outpatient (CLI) | payer OTHER ==
[2023-07-01 10:28] LABS: CALCIUM 10.1 mg/dL (8.5-10.3); CREATININE 0.7 mg/dL (0.6-1.3)
[2023-07-01 10:29] LABS: CREATININE,URINE 113.8 mg/dL; MICROALBUM/CREATININE RATIO,UR 20.2 ug/mg (<30.0); MICROALBUMIN,URINE 2.3 mg/dL
[2023-07-01 20:24] LABS: ESTIMATED AVERAGE GLUCOSE 246 mg/dL (70-100); HEMOGLOBIN A1c% 10.2 % (4.27-6.07)
== END 2023-07-01 09:23 | disposition home or self-care (01) ==
LOC: LAB 09:22
PROVIDERS: ATTEND Family Medicine
DX: E11.8 Type 2 diabetes mellitus with unspecified complications (principal); E11.65 Type 2 diabetes mellitus with hyperglycemia; Z79.4 Long term (current) use of insulin
CPT/HCPCS: 36415; 80048; 82043; 82570; 83036

== ENCOUNTER 2023-07-13 08:00 | Outpatient (CLI) | payer OTHER ==
[2023-07-13 20:47] LABS: INFLUENZA A- RESP PCR PANEL NOT DETECTED; INFLUENZA B - RESP PCR PANEL NOT DETECTED; RSV- RESP PCR PANEL NOT DETECTED; SARS-CoV-2 -RESP PCR PANEL NOT DETECTED
== END 2023-07-13 23:59 | disposition home or self-care (01) ==
LOC: LAB.N 08:00
PROVIDERS: ATTEND Registered Nurse
DX: R05.1 Acute cough (principal); R50.9 Fever, unspecified
CPT/HCPCS: 87637

== ENCOUNTER 2023-07-13 16:34 | Outpatient (CLI) | payer OTHER ==
--- NOTE | 2023-07-13 21:08 | XRAY Report ---
PROCEDURE: Chest 2V INDICATIONS: ACUTE COUGH TECHNIQUE: 2 views of the chest were acquired. COMPARISON: 01/17/2020. FINDINGS: Surgical changes and devices: None. Lungs and pleura: No pleural effusions or pneumothorax. Lungs are clear. Mediastinum: Mediastinal contours appear normal. Heart size is normal. Bones and chest wall: No suspicious bony lesions. Overlying soft tissues appear unremarkable. IMPRESSION: No acute cardiopulmonary process. Reviewed by: Tenzin Diop MD on 07/13/2023 9:07 PM PDT Approved by: Tenzin Diop MD on 07/13/2023 9:07 PM PDT Station ID: [id number]
== END 2023-07-13 16:35 | disposition home or self-care (01) ==
LOC: DI 16:34
PROVIDERS: ATTEND Registered Nurse
DX: R05.1 Acute cough (principal); R50.9 Fever, unspecified
CPT/HCPCS: 87637

== ENCOUNTER 2023-07-26 07:48 | Emergency (ER) | payer OTHER ==
--- NOTE | 2023-07-26 08:07 | ED Physician Documentation ---
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 Lightheaded. no CP.) Timing - details: Abrupt onset, Still present (but not as badly feeling as the initiation iof it.) Inciting event(s): Other (stated on [employer] 3 weeks ago.). No: URI Associated symptoms: Other (sinus and nasal congestion for few days.). No: Fever (Medics got temp of 100.4 and tachycardic HR.), Cough Recently seen: Not recently seen Review of Systems Constitutional: denies: Fever, Chills, Myalgias Nose: reports: Rhinorrhea / runny nose, Congestion Throat: denies: Sore throat Cardiac: denies: Chest pain / pressure, Pedal edema, Calf pain Respiratory: reports: Cough (mild) Skin: denies: Rash, Lesions Musculoskeletal: denies: Extremity swelling Neurologic: reports: Generalized weakness. denies: Focal weakness, Numbness, Difficulty speaking PD PAST MEDICAL HISTORY - Past Medical History Cardiovascular: Hypertension Respiratory: Other Endocrine/Autoimmune: Type 2 diabetes GI: GERD Musculoskeletal: Chronic back pain, Other Derm: None - Past Surgical History Past Surgical History: Yes General: Colonoscopy Ortho: Shoulder arthroplasty - Present Medications Home Medications: Ambulatory Orders Medication Instructions Recorded Confirmed HYDROcod/ACETAM 5/325 [Vicodin 1 tab PO Q6HR PRN 02/05/14 07/26/23 5/325] Ibuprofen 200 mg PO Q6HR PRN 02/05/14 07/26/23 Lisinopril/Hydrochlorothiazide 2 tab PO DAILY 02/05/14 07/26/23 [Lisinopril-Hctz 20-12.5 mg Tab] Metformin HCl [Metformin ER 500 mg PO TID 02/05/14 07/26/23 Osmotic] Aspirin Chewable [[place] 81 mg PO DAILY 06/17/18 07/26/23 Aspirin] Insulin Lispro [Humalog] 15 unit SUBQ BID 06/17/18 07/26/23 Naproxen Sodium [Aleve] 220 mg PO HS 02/01/23 07/26/23 Acetaminophen [Tylenol] 1 tab PO PRN PRN 02/02/23 07/26/23 Glimepiride [Amaryl] 6 mg PO BID 02/02/23 07/26/23 diltiaZEM CD [Cardizem Cd] 120 mg PO DAILY 20 Days #20 cap 07/26/23 07/26/23 diltiaZEM [Cardizem] 60 mg PO Q6H PRN #6 tablet 07/26/23 07/26/23 - Allergies Allergies/Adverse Reactions: Allergies Allergy/AdvReac Type Severity Reaction Status Date / Time No Known Drug Allergies Allergy Verified 07/26/23 18:33 - Social History Does the pt smoke?: No Smoking Status: Former smoker Does the pt drink ETOH?: No Does the pt have substance abuse?: No - Immunizations Immunizations are current?: Yes PD ED PE NORMAL - Vitals Vital signs reviewed: Yes (consistently tachycardic with 138-145, mainly 143- 145.) - General General: Alert and oriented X 3, No acute distress, Well developed/nourished - HEENT HEENT: Pharynx benign - Neck Neck: Supple, no meningeal sign, No adenopathy - Cardiac Cardiac: No murmur. No: RRR (regular but tachycardic strictly consistent at about 143-145.) - Respiratory Respiratory: No respiratory distress, Clear bilaterally - Abdomen Abdomen: Soft, Non tender - Derm Derm: Normal color, Warm and dry - Extremities Extremities: No edema, No calf tenderness / cord - Neuro Neuro: Alert and oriented X 3, No motor deficit, Normal speech Eye Opening: Spontaneous Motor: Obeys Commands Verbal: Oriented GCS Score: 15 Results - Vitals Vitals: Vital Signs - 24 hr 07/26/23 07/26/23 07/26/23 07:53 08:00 08:37 Temperature 37.4 C Heart Rate 145 H 140 H 135 H Respiratory 13 16 13 Rate Blood Pressure 127/81 H 111/76 138/83 H O2 Saturation 97 96 97 If not protocol : Oxygen Flow, liters/minute 07/26/23 07/26/23 07/26/23 08:45 09:00 09:05 Temperature Heart Rate 133 H 127 H 123 H Respiratory 22 22 16 Rate Blood Pressure 116/83 H 138/77 H 141/78 H O2 Saturation 94 94 98 If not protocol : Oxygen Flow, liters/minute 07/26/23 07/26/23 07/26/23 09:10 09:15 09:20 Temperature Heart Rate 119 H 123 H 126 H Respiratory 15 18 20 Rate Blood Pressure 146/88 H 139/83 H 136/88 H O2 Saturation 98 96 98 If not protocol : Oxygen Flow, liters/minute 07/26/23 07/26/23 07/26/23 09:25 09:30 09:35 Temperature Heart Rate 132 H 129 H 130 H Respiratory 19 23 17 Rate Blood Pressure 127/86 H 132/81 H 115/67 O2 Saturation 97 95 96 If not protocol : Oxygen Flow, liters/minute 07/26/23 07/26/23 07/26/23 09:40 10:00 10:05 Temperature Heart Rate 129 H 120 H 118 H Respiratory 19 18 23 Rate Blood Pressure 104/68 98/67 104/75 O2 Saturation 94 92 89 L If not protocol : Oxygen Flow, liters/minute 07/26/23 07/26/23 07/26/23 10:10 10:15 10:20 Temperature Heart Rate 116 H 112 H 110 H Respiratory 17 19 17 Rate Blood Pressure 110/66 103/66 103/66 O2 Saturation 90 L 90 L 86 L If not protocol : Oxygen Flow, liters/minute 07/26/23 07/26/23 07/26/23 10:22 11:30 12:18 Temperature Heart Rate 110 H 112 H Respiratory 18 18 Rate Blood Pressure 92/65 95/69 O2 Saturation 91 L 93 95 If not protocol 1 : Oxygen Flow, liters/minute 07/26/23 07/26/23 07/26/23 13:30 14:00 15:00 Temperature Heart Rate 107 H 106 H 113 H Respiratory 21 16 19 Rate Blood Pressure 100/64 98/71 112/69 O2 Saturation 97 97 98 If not protocol 1 : Oxygen Flow, liters/minute 07/26/23 07/26/23 07/26/23 15:28 15:30 15:45 Temperature 36.1 C L Heart Rate 112 H 119 H 115 H Respiratory 18 17 14 Rate Blood Pressure 104/74 118/78 126/69 O2 Saturation 99 99 99 If not protocol : Oxygen Flow, liters/minute Oxygen O2 Source Room air - EKG (time done) 08:06 EKG releavant findings:: EKG personally interpreted by author of this note. Relevant findings are: Rate: Rate (enter#) (137) Rhythm: Sinus tachycardia (though quite regular, so consider SVT or atrial flutter.) [place]: Normal Intervals: Normal [place], RBBB QRS: Normal Ischemia: Normal ST segments. No: ST elevation c/w ischemia, ST depression 10:55 EKG releavant findings:: EKG personally interpreted by author of this note. Relevant findings are: Rate: Rate (enter#) (111) Rhythm: Sinus tachycardia [place]: Normal Intervals: Normal [place], Wide QRS QRS: Normal Ischemia: Normal ST segments. No: ST elevation c/w ischemia, ST depression - Labs Labs: Laboratory Tests 07/26/23 07/26/23 07/26/23 08:35 08:35 08:35 WBC 8.6 RBC 5.00 Hgb 13.8 L Hct 41.0 L MCV 82.0 MCH 27.6 MCHC 33.7 RDW 14.1 Plt Count 175 MPV 9.8 Neut # (Auto) 8.1 H Lymph # (Auto) 0.4 L Turner # (Auto) 0.0 Eos # (Auto) 0.0 Baso # (Auto) 0.0 Absolute Nucleated RBC 0.00 Nucleated RBC % 0.0 D-Dimer Sodium 134 L Potassium 4.1 Chloride 103 Carbon Dioxide 20 L Anion Gap 11.0 BUN 30 H Creatinine 0.8 Estimated GFR (MDRD) 100 Glucose 335 H Calcium 9.8 Magnesium 1.4 L Total Bilirubin 0.6 AST 20 ALT 34 Alkaline Phosphatase 65 Troponin I High Sens B-Natriuretic Peptide 13 Total Protein 6.5 Albumin 3.9 Globulin 2.6 Albumin/Globulin Ratio 1.5 Lipase 45 07/26/23 07/26/23 08:35 08:35 WBC RBC Hgb Hct MCV MCH MCHC RDW Plt Count MPV Neut # (Auto) Lymph # (Auto) Turner # (Auto) Eos # (Auto) Baso # (Auto) Absolute Nucleated RBC Nucleated RBC % D-Dimer > 1050.0 H Sodium Potassium Chloride Carbon Dioxide Anion Gap BUN Creatinine Estimated GFR (MDRD) Glucose Calcium Magnesium Total Bilirubin AST ALT Alkaline Phosphatase Troponin I High Sens 6.8 B-Natriuretic Peptide Total Protein Albumin Globulin Albumin/Globulin Ratio Lipase - Rads (name of study) chest xray Relevant Findings:: Prelim report reviewed (no acute cardiopulomary process), EMP independent interpretation of test chest CT-A Relevant Findings:: Prelim report reviewed (delay for reading due to image transmission problem. Coupleof hours delay to noitice it and then get corrected. No PE nor acute process. ), EMP independent interpretation of test PD Medical Decision Making - ED course Complexity details: reviewed results, re-evaluated patient (he is feeling much better with HR slower. Still is tachycardic at 100-110. BP had decrease with the Diltiazem, and improved with IV fluids and then dose of calcium. He would prefer going home. He is in sinus rhythm and feeling okay with normal tests for more serious causes. 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 No chest pain. He called EMS as felt unsure about still driving. EMS noted him tachycardid but alert, good BP, blood sugar slightly elevated 200s. Continued tachy 140s enroute. ), d/w patient ED course: he denies recent illness. He has been stressed with recent of his father and it going to [facility] for the . Leaving in 2 days. Denies alcohol/binge drinking. No history of irregular heart rhythm. Had onset of feeling shaky and chilled. I presume he had some diaphoresis when the tachycardia started. It appeared sinus tach, but was strictly regular and so suspicion for atrial flutter. Given dose adenosine 6 mg then 12 mg with pausing and slowing at the higher dose. Telemetry strips from that point show to be apparent fluttter p waves. Returned to 143-145 rate. Given Diltiazem IV x 2 doses and had slowing of HR to 100-115. It then seemed to become more variable in that range and repeat ECG appears sinus tach. His BP did drop with the diltiazem apparently. Had been given some IV fluid prior to dosing, but given an additional liter fluid. SLuggish to improve from 90s systolic, and given Caalcium gluconate since BP drop timed with the calcium marty. BP improved to 110-115 range systolic then. He is feeling well and wants to head home. We did good testing of CXR, ECG, tropoinin, BNP and chest CT-A due to elevated d-dimer (done due to unexplained tachycardia/atrial flutter). Negative for PE nor other acute process. I feel discharge can be safe at this time. No apparent serious trigger for the atrial flutter episode. He is traveling to [facility] starting in 2 days. I feel daily diltiazem dose and a "pill in the pocket" short onset diltiazem PO PRN tachycardic episode. The trip for his father's is very important to him. - Critical Care Time(min): 53 Time Includes: Direct patient care, Reassess patient, Document care, Medical consult Data interpretation: Labs, Pulse ox, CXR Procedures excluded from critical care time: EKG Departure - Departure Disposition: Home, Self Care Clinical Impression: Hypomagnesemia Atrial flutter Qualifiers: Atrial flutter type: typical Qualified Code(s): I48.3 - Typical atrial flutter Condition: Stable Record reviewed to determine appropriate education?: Yes Instructions: ED Afib Follow-Up: Ashok Negron MD [Primary Care Provider] - Prescriptions: diltiaZEM [Cardizem] 60 mg PO Q6H PRN #6 tablet PRN Reason: Tachycardia diltiaZEM CD [Cardizem Cd] 120 mg PO DAILY 20 Days #20 cap Comments: You did have an episode of a fast heart rate atrial fibrillation/flutter. This seems to have accounted for your symptoms. At this point on testing there is no signs of heart attack, heart failure, blood clots, aortic aneurysms or dissections, fluid overload nor fluid around the heart. I presume it is just electrical glitch. Your potassium actually was in the normal range and I think I suggested it was low but on review it actually was normal. Your magnesium however was low at 1.4. I would suggest potassium supplement 2-3 times daily over the next several days and then once daily after that for another couple of weeks. Continue with your other usual medicines and of aspirin daily. I would decrease your lisinopril from twice daily to once daily as we add the diltiazem. Diltiazem 120 mg daily with the intention of it keeping your heart rate in better check. I will have some effect on your blood pressure which is why I would have you decrease your lisinopril dose. If you are feeling lightheaded or having a lower blood pressure than usual, then just discontinue the lisinopril for now. The main goal in the near term and while you are on your trip for your father's is to keep your heart rate from going too fast and if your blood pressure is a little bit higher that is okay. In addition to the daily diltiazem, also carry with you the diltiazem 60 mg tablet which is a quick acting over an hour or 2 onset. If you find feeling similar symptoms and not your heart rate racing approximately 1 30-1 50 or such, you can take a dose of the short acting diltiazem and see if it slows your heart rate down appropriately like the dosing here did. Follow-up with your primary care upon return from your trip but call tomorrow for follow-up appointment time so that its already scheduled. I sent your prescriptions to preferred pharmacy. Stay well-hydrated otherwise. Avoid caffeine and alcohol if you do use any of these. Forms: PCP List Discharge Date/Time: 07/26/23 15:45
[2023-07-26] MEDS: SODIUM CHLORIDE 0.9% 1,000 ML IV STA ×3 (08:18→13:11)
[2023-07-26] MEDS: MORPHINE 2 MG/ML CARPUJECT IVP STA (08:25)
[2023-07-26] MEDS: ADENOSINE 6 MG/2 ML VIAL IVP STA ×2 (08:25→08:35)
[2023-07-26] MEDS ORDERED: ADENOSINE 6 MG/2 ML VIAL IVP ONE (08:33)
[2023-07-26 08:40] LABS: BASOPHILS % (AUTO) 0.2 %; EOSINOPHILS % (AUTO) 0.3 %; HGB - HEMOGLOBIN 13.8 g/dL (14.0-18.0); LYMPHOCYTES # (AUTO) 0.4 10^3/uL (1.5-3.5); LYMPHOCYTES % (AUTO) 4.4 %; MEAN CORPUSCULAR HEMOGLOBIN 27.6 pg (27.0-31.0); MEAN CORPUSCULAR HGB CONC 33.7 g/dL (32.0-36.0); MEAN PLATELET VOLUME 9.8 fL (7.4-11.4); MONOCYTES % (AUTO) 0.5 %; NEUTROPHILS # (AUTO) 8.1 10^3/uL (1.5-6.6); NEUTROPHILS % (AUTO) 94.3 %; PLT - PLATELET COUNT 175 10^3/uL (130-450); RED CELL DISTRIBUTION WIDTH 14.1 % (12.0-15.0); WHITE BLOOD COUNT 8.6 x10^3/uL (4.8-10.8)
[2023-07-26 08:57] LABS: ALBUMIN 3.9 g/dL (3.2-5.5); ALBUMIN/GLOBULIN RATIO 1.5 (1.0-2.2); BILIRUBIN,TOTAL 0.6 mg/dL (0.2-1.0); CALCIUM 9.8 mg/dL (8.5-10.3); CREATININE 0.8 mg/dL (0.6-1.3); MAGNESIUM 1.4 mg/dL (1.7-2.3); POTASSIUM 4.1 mmol/L (3.5-4.5); TOTAL PROTEIN 6.5 g/dL (6.4-8.9)
[2023-07-26] MEDS: diltiaZEM INJ 5 MG/ML VIAL IVP STA ×2 (08:59→10:06)
[2023-07-26] MEDS: MAGNESIUM SULFATE 2 GRAM 2 GM/50 ML BAG IV ONE (09:06)
[2023-07-26] MEDS ORDERED: iohexoL-300 100 ML VIAL ONE (11:16)
[2023-07-26] MEDS: iohexoL-300 100 ML VIAL IVP ONE (11:59)
[2023-07-26] MEDS: CALCIUM GLUC 1,000MG/50ML-NACL 1,000 MG/50 ML BAG IV STA (13:07)
--- NOTE | 2023-07-26 13:38 | CT Report ---
PROCEDURE: Angio Chest INDICATIONS: tachycardia/lighthead abrupt today; elevated d-dim CONTRAST: Omni 300 80 TECHNIQUE: After the administration of intravenous contrast, 2 mm axial images were acquired from the pulmonary apices to the posterior costophrenic angles during the arterial phase. In addition, 1 mm lung kernel and 5 mm soft tissue kernel reconstructions were performed. 3-dimensional coronal oblique maximum int ensity projection (MIP) reformats, 8 mm axial MIP, and 5 mm coronal and sagittal MPR reformats were t hen performed through the thorax. For radiation dose reduction, the following was used: automated exp osure control, adjustment of mA and/or kV according to patient size. COMPARISON: None. FINDINGS: Image quality: Diagnostic. Large vessels: No filling defects within the opacified pulmonary arteries, accounting for motion and contrast timing. No evidence of acute aortic syndrome or aortic aneurysm. Lungs and pleura: No consolidation. No pleural effusions. No pneumothorax. No suspicious pulmonary n odules which require follow up. Mediastinum: Heart size is normal. No pericardial effusion. No large vessel abnormality. No mediastin al adenopathy by size criteria. Chest wall and lower neck: 1.9 cm left thyroid nodule. No axillary or supraclavicular adenopathy by gerald lacy. Bones: No aggressive osseous abnormality. Upper Abdomen: Cholelithiasis.. IMPRESSION: No pulmonary embolus. Left thyroid nodule measuring 1.9 cm. Recommend nonemergent thyroid ultrasound for further evaluation . Cholelithiasis. Reviewed by: Janelle Guo MD, PhD on 07/26/2023 1:37 PM PDT Approved by: Janelle Guo MD, PhD on 07/26/2023 1:37 PM PDT Station ID: [id number]
[2023-07-26 15:30] VITALS: O2SAT 99
[2023-07-26 15:49] VITALS: BP 126/69
--- NOTE | 2023-07-26 16:53 | XRAY Report ---
PROCEDURE: Chest 1V INDICATIONS: Chest Pain TECHNIQUE: One view of the chest was acquired. COMPARISON: 07/13/2023. FINDINGS: Surgical changes and devices: None. Lungs and pleura: No pleural effusions or pneumothorax. Lungs are clear. Mediastinum: Mediastinal contours appear normal. Heart size is normal. Bones and chest wall: No suspicious bony lesions. Overlying soft tissues appear unremarkable. IMPRESSION: No acute cardiopulmonary process. Reviewed by: Hamilton Osorio MD on 07/26/2023 4:52 PM PDT Approved by: Hamilton Osorio MD on 07/26/2023 4:52 PM PDT Station ID: [id number]
== END 2023-07-26 15:45 | disposition home or self-care (01) ==
LOC: EDUNIT# → ED 07:48
DX: I48.3 Typical atrial flutter (principal); E83.42 Hypomagnesemia; R00.0 Tachycardia, unspecified; I10 Essential (primary) hypertension; E11.9 Type 2 diabetes mellitus without complications; Z79.4 Long term (current) use of insulin; Z79.84 Long term (current) use of oral hypoglycemic drugs; Z87.891 Personal history of nicotine dependence
CPT/HCPCS: 36415; 71045; 71275; 80053; 83690; 83735; 83880; 84484; 85025; 85379; 93005; 96361; 96365; 96367; 96375; 96376; 99284; 99291; J0153; Q9967

== ENCOUNTER 2023-08-30 10:16 | Outpatient (CLI) | payer OTHER ==
[2023-08-30 10:25] LABS: BASOPHILS # (AUTO) 0.1 10^3/uL (0.0-0.1); BASOPHILS % (AUTO) 0.7 %; EOSINOPHILS # (AUTO) 0.1 10^3/uL (0.0-0.7); EOSINOPHILS % (AUTO) 1.6 %; HCT - HEMATOCRIT 45.3 % (42.0-52.0); HGB - HEMOGLOBIN 14.4 g/dL (14.0-18.0); LYMPHOCYTES # (AUTO) 2.5 10^3/uL (1.5-3.5); LYMPHOCYTES % (AUTO) 32.7 %; MEAN CORPUSCULAR HGB CONC 31.8 g/dL (32.0-36.0); MEAN CORPUSCULAR VOLUME 84.8 fL (80.0-94.0); MONOCYTES # (AUTO) 0.5 10^3/uL (0.0-1.0); MONOCYTES % (AUTO) 6.9 %; NEUTROPHILS # (AUTO) 4.4 10^3/uL (1.5-6.6); NEUTROPHILS % (AUTO) 57.8 %; PLT - PLATELET COUNT 147 10^3/uL (130-450); RED BLOOD COUNT 5.34 10^6/uL (4.70-6.10); RED CELL DISTRIBUTION WIDTH 15.6 % (12.0-15.0); WHITE BLOOD COUNT 7.6 x10^3/uL (4.8-10.8)
[2023-08-30 10:42] LABS: ALBUMIN 4.5 g/dL (3.2-5.5); ALBUMIN/GLOBULIN RATIO 1.6 (1.0-2.2); ALKALINE PHOSPHATASE 59 IU/L (42-121); ALT ALANINE AMINOTRANSFERASE 20 IU/L (10-60); AST ASPARTATE AMINOTRANSFERASE 14 IU/L (10-42); BILIRUBIN,TOTAL 0.7 mg/dL (0.2-1.0); BUN - BLOOD UREA NITROGEN 21 mg/dL (6-20); CALCIUM 10.5 mg/dL (8.5-10.3); CARBON DIOXIDE - CO2 27 mmol/L (21-32); CHLORIDE 104 mmol/L (101-111); CHOL/HDL RATIO 4.2 (<5.0); CHOLESTEROL 205 mg/dL; CREATININE 0.8 mg/dL (0.6-1.3); GFR - MDRD 100 (>89); GLUCOSE 195 mg/dL (74-104); HDL CHOLESTEROL 49 mg/dL; LDL CHOLESTEROL,CALCULATED 116 mg/dL; LDL/HDL RATIO 2.4 (<3.6); POTASSIUM 4.4 mmol/L (3.5-4.5); SODIUM 137 mmol/L (135-145); TOTAL PROTEIN 7.3 g/dL (6.4-8.9); TRIGLYCERIDES 201 mg/dL (48-352); VLDL CHOLESTEROL 40 mg/dL
[2023-08-30 10:57] LABS: THYROID STIMULATING HORMONE 1.52 uIU/mL (0.34-5.60)
[2023-08-30 12:23] LABS: ESTIMATED AVERAGE GLUCOSE 174 mg/dL (70-100); HEMOGLOBIN A1c% 7.7 % (4.27-6.07)
== END 2023-08-30 10:17 | disposition home or self-care (01) ==
LOC: LAB 10:16
PROVIDERS: ATTEND Family Medicine
DX: A41.51 Sepsis due to Escherichia coli [E. coli] (principal); E11.8 Type 2 diabetes mellitus with unspecified complications; E11.65 Type 2 diabetes mellitus with hyperglycemia; Z79.4 Long term (current) use of insulin
CPT/HCPCS: 36415; 80053; 80061; 83036; 83721; 84443; 85025

== ENCOUNTER 2023-09-08 08:47 | Outpatient (CLI) | payer OTHER ==
--- NOTE | 2023-09-10 09:00 | Ultrasound Report ---
PROCEDURE: Soft Tissue Head or Neck INDICATIONS: THYROID NODULE TECHNIQUE: Real-time scanning was performed of the thyroid gland, with image documentation. COMPARISON: None FINDINGS: Right: Thyroid lobe measures 5.4 x 1.6 x 1.5 cm. Left: Thyroid lobe measures 4.0 x 1.8 x 1.5 cm Isthmus: 0.4 cm thick. Echotexture: Homogeneous. Nodule number: One Location: Right superior Size: 0.7 cm. Composition: Cystic / almost completely cystic (0 points). Echogenicity: Anechoic (0 points). Shape: wider than tall (0 points). Margins: Smooth (0 points). Echogenic foci: None (0 points). Total points: 0 ACR TI-RADS category: TI-RADS 1: Benign. Nodule number: Two Location: Left mid thyroid laterally Size: 1.2 x 1.0 x 0.8 cm. Composition: Solid (2 points). Echogenicity: Hypoechoic (2 points). Shape: wider than tall (0 points). Margins: Smooth (0 points). Echogenic foci: None (0 points). Total points: 4 ACR TI-RADS category: TI-RADS 4: Moderately suspicious. Nodule number: Three Location: Left anterior Size: 0.7 x 0.8 x 0.6 cm. Composition: Spongiform (0 points). Echogenicity: Hypoechoic (2 points). Shape: wider than tall (0 points). Margins: Smooth (0 points). Echogenic foci: None (0 points). Total points: 2 ACR TI-RADS category: TI-RADS 2: Not suspicious. IMPRESSION: Moderately suspicious 1.2 cm left thyroid nodule. Recommend 1 year follow-up ultrasound based on guidelines provided below. ACR TI-RADS definitions and recommendations: TI-RADS 1 (benign): 0 points. FNA not needed. TI-RADS 2 (not suspicious): 2 points. FNA not needed. TI-RADS 3 (mildly suspicious): 3 points. "FNA if 2.5 cm or larger, follow up if 1.5 cm or larger (at 1, 3, and 5 years). TI-RADS 4 (moderately suspicious): 4-6 points. "FNA if 1.5 cm or larger, follow up if 1 cm or larger (at 1, 2, 3, and 5 years). TI-RADS 5 (highly suspicious): 7 points or more. "FNA if 1 cm or larger, follow up if 0.5 cm or larger (every year for 5 years). Reviewed by: Tai Pelayo MD on 09/10/2023 8:59 AM PDT Approved by: Tai Pelayo MD on 09/10/2023 8:59 AM PDT Station ID: [id number]
== END 2023-09-08 08:48 | disposition home or self-care (01) ==
LOC: DI 08:47
PROVIDERS: ATTEND Family Medicine
DX: E04.2 Nontoxic multinodular goiter (principal)

== ENCOUNTER 2023-12-16 09:46 | Outpatient (CLI) | payer OTHER ==
[2023-12-16 10:11] LABS: BASOPHILS % (AUTO) 0.3 %; EOSINOPHILS # (AUTO) 0.1 10^3/uL (0.0-0.7); EOSINOPHILS % (AUTO) 1.6 %; HCT - HEMATOCRIT 48.8 % (42.0-52.0); HGB - HEMOGLOBIN 15.7 g/dL (14.0-18.0); LYMPHOCYTES # (AUTO) 2.3 10^3/uL (1.5-3.5); LYMPHOCYTES % (AUTO) 37.8 %; MEAN CORPUSCULAR HEMOGLOBIN 26.9 pg (27.0-31.0); MEAN CORPUSCULAR HGB CONC 32.2 g/dL (32.0-36.0); MEAN CORPUSCULAR VOLUME 83.6 fL (80.0-94.0); MEAN PLATELET VOLUME 10.1 fL (7.4-11.4); MONOCYTES # (AUTO) 0.5 10^3/uL (0.0-1.0); MONOCYTES % (AUTO) 8.2 %; NEUTROPHILS # (AUTO) 3.2 10^3/uL (1.5-6.6); NEUTROPHILS % (AUTO) 51.9 %; PLT - PLATELET COUNT 202 10^3/uL (130-450); RED BLOOD COUNT 5.84 10^6/uL (4.70-6.10); RED CELL DISTRIBUTION WIDTH 14.6 % (12.0-15.0); WHITE BLOOD COUNT 6.1 x10^3/uL (4.8-10.8)
[2023-12-16 10:17] LABS: ALBUMIN 4.5 g/dL (3.2-5.5); ALBUMIN/GLOBULIN RATIO 1.9 (1.0-2.2); ALKALINE PHOSPHATASE 65 IU/L (42-121); ALT ALANINE AMINOTRANSFERASE 19 IU/L (10-60); AST ASPARTATE AMINOTRANSFERASE 15 IU/L (10-42); BILIRUBIN,TOTAL 0.9 mg/dL (0.2-1.0); BUN - BLOOD UREA NITROGEN 28 mg/dL (6-20); CALCIUM 9.8 mg/dL (8.5-10.3); CARBON DIOXIDE - CO2 29 mmol/L (21-32); CHLORIDE 104 mmol/L (101-111); CHOL/HDL RATIO 3.6 (<5.0); CHOLESTEROL 182 mg/dL; CREATININE 0.8 mg/dL (0.6-1.3); GFR - MDRD 100 (>89); GLUCOSE 136 mg/dL (74-104); HDL CHOLESTEROL 51 mg/dL; LDL CHOLESTEROL,CALCULATED 109 mg/dL; LDL/HDL RATIO 2.1 (<3.6); POTASSIUM 4.4 mmol/L (3.5-4.5); SODIUM 138 mmol/L (135-145); TOTAL PROTEIN 6.9 g/dL (6.4-8.9); TRIGLYCERIDES 110 mg/dL; VLDL CHOLESTEROL 22 mg/dL
[2023-12-16 10:18] LABS: CREATININE,URINE 67.7 mg/dL; MICROALBUM/CREATININE RATIO,UR 14.8 ug/mg (<30.0)
[2023-12-16 10:32] LABS: THYROID STIMULATING HORMONE 1.13 uIU/mL (0.34-5.60)
[2023-12-16 19:29] LABS: ESTIMATED AVERAGE GLUCOSE 206 mg/dL (70-100); HEMOGLOBIN A1c% 8.8 % (4.27-6.07)
== END 2023-12-16 09:47 | disposition home or self-care (01) ==
LOC: LAB 09:46
PROVIDERS: ATTEND Family Medicine
DX: E11.8 Type 2 diabetes mellitus with unspecified complications (principal); Z79.4 Long term (current) use of insulin; M47.816 Spondylosis without myelopathy or radiculopathy, lumbar region; E66.9 Obesity, unspecified; J44.9 Chronic obstructive pulmonary disease, unspecified; E11.65 Type 2 diabetes mellitus with hyperglycemia; I10 Essential (primary) hypertension; Z12.5 Encounter for screening for malignant neoplasm of prostate
CPT/HCPCS: 36415; 80053; 80061; 82043; 82570; 83036; 83721; 84153; 84443; 85025

== ENCOUNTER 2023-12-27 11:29 | Outpatient (CLI) | payer OTHER ==
--- NOTE | 2023-12-27 20:39 | XRAY Report ---
PROCEDURE: Lumbar Spine 4V INDICATIONS: LOW BACK PAIN TECHNIQUE: 4 views of the lumbar spine were acquired. COMPARISON: CT abdomen pelvis dated 07/30/2023. FINDINGS: Surgical change: None. Bones: 5 [id number] vertebrae are present. There is normal bony alignment. No acute vertebral b vandana compression fractures. No pars defects visualized. No suspicious bony lesions. Multilevel spondyl osis of the imaged spine and advanced mid and lower lumbar facet arthropathy. Moderate degenerative c hanges at T12-L1 and L1-L2. Soft tissues: Overlying bowel gas pattern is normal. No suspicious soft tissue calcifications. IMPRESSION: Lumbar spine without acute osseous abnormalities or malalignment. No pars defects. Multilevel spondylosis at the thoracolumbar junction and lower lumbar spine. Reviewed by: Madi Pavon MD on 12/27/2023 7:38 PM ROSALIE Approved by: Madi Pavon MD on 12/27/2023 7:38 PM ROSALIE Station ID: [id number]
== END 2023-12-27 11:30 | disposition home or self-care (01) ==
LOC: DI 11:29
PROVIDERS: ATTEND Family Medicine
DX: M47.815 Spondylosis without myelopathy or radiculopathy, thoracolumbar region (principal); M47.816 Spondylosis without myelopathy or radiculopathy, lumbar region